=== PATIENT | female | born 1965 | race Caucasian/White ===

== ENCOUNTER 2017-06-30 14:44 | Outpatient (CLI) | payer MEDICARE | END 2017-06-30 14:45 | disposition home or self-care (01) | LOC: BICRAD 14:44 | PROVIDERS: ATTEND Internal Medicine | DX: M54.5 Low back pain (principal); M25.551 Pain in right hip; M47.896 Other spondylosis, lumbar region | CPT/HCPCS: 72100; 72220 ==

== ENCOUNTER 2017-07-06 08:37 | Outpatient (CLI) | payer MEDICARE | END 2017-07-06 08:38 | disposition home or self-care (01) | LOC: BICMAMMO 08:37 | PROVIDERS: ATTEND Internal Medicine | DX: R92.8 Other abnormal and inconclusive findings on diagnostic imaging of breast (principal) | CPT/HCPCS: 76642; 77065; G0279 ==

== ENCOUNTER → 2017-07-13 | Day surgery (SDC) | payer MEDICARE | LOC: BICULT 13:07 | PROVIDERS: ATTEND Internal Medicine | PROC: 0HBU3ZX Excision of Left Breast, Percutaneous Approach, Diagnostic (ICD-10-PCS; principal; 2017-07-13) | DX: N60.12 Diffuse cystic mastopathy of left breast (principal); N60.42 Mammary duct ectasia of left breast; Z88.0 Allergy status to penicillin; Z88.1 Allergy status to other antibiotic agents | CPT/HCPCS: 19083; 19084; 88305 ==

== ENCOUNTER 2017-09-20 07:41 | Outpatient (CLI) | payer MEDICARE ==
[2017-09-20] MEDS ORDERED: Gadobenate Dimeglumine 529 MG/1 ML (20ML VIAL) ONE (13:11)
== END 2017-09-20 07:42 | disposition home or self-care (01) ==
LOC: BICMRI 07:41
PROVIDERS: ATTEND Psychiatry & Neurology Neurology
DX: G35 Multiple sclerosis (principal); M47.892 Other spondylosis, cervical region; I67.82 Cerebral ischemia
CPT/HCPCS: 70553; 72156; A9579

== ENCOUNTER 2017-12-28 09:21 | Outpatient (CLI) | payer MEDICARE | END 2017-12-28 09:22 | disposition home or self-care (01) | LOC: BICMAMMO 09:21 | PROVIDERS: ATTEND Internal Medicine | DX: Z12.31 Encounter for screening mammogram for malignant neoplasm of breast (principal); N63.20 Unspecified lump in the left breast, unspecified quadrant | CPT/HCPCS: 77063; 77067 ==

== ENCOUNTER 2018-08-02 13:40 | Outpatient (CLI) | payer MEDICARE ==
[~2018-08-02 13:40] MED LIST: Gadobenate Dimeglumine 529 MG/1 ML (20ML VIAL) ONE
--- NOTE | 2018-08-02 16:45 | MRI ---
MRI BRAIN WITH AND WITHOUT CONTRAST: DATE: 08/02/2018 HISTORY: 52-year-old female with multiple sclerosis. Follow-up. COMPARISON: 09/20/2017 TECHNIQUE: Multiplanar, multisequence MRI of the brain performed pre- and post-IV injection of gadolinium based contrast agent. FINDINGS: There are very extensive, severe, confluent T2-hyperintense signal abnormalities throughout the subco rtical, deep, and periventricular white matter of the supratentorial brain. The entire length of the corpus callosum is involved with the signal abnormality. There are several small focal such signa l abnormalities in the bilateral cerebellar hemispheres. There is questionable involvement of gisela and middle cerebellar peduncles. There is no abnormal enhancement, obstructive hydrocephalus, mass ef fect, midline shift, extra-axial fluid collection, restricted diffusion, or hemorrhage. There is diffuse, moderately advanced atrophy of the brain. Small focal signal abnormality of posterior limb o f right internal capsule is again noted. There has been no significant interval change. IMPRESSION: Late stage, severe multiple sclerosis, unchanged since last year.
--- NOTE | 2018-08-02 16:52 | MRI ---
MRI CERVICAL SPINE WITH AND WITHOUT CONTRAST: 08/02/18 Multiplanar and multisequential imaging of the cervical spine obtained. Postcontrast images obtained. INDICATIONS: MS evaluation. COMPARISON: Comparison made to prior MRI cervical spine 09/20/17. FINDINGS: The cervical vertebrae maintain normal height and alignment. Loss of disc space at C5-6 and C6-8 agai n noted. Posterior disc bulge and spondylosis at both of these levels again seen impinging and mildly indentin g the anterior cord. These changes are slightly more pronounced at C5-6. They appear stable in appear ance from the prior study. Only mild spondylosis at the other levels without significant change. The anterior subarachnoid space is preserved at the other levels. Incidentally noted is uncinate hypertrophy to the right at T2-T3 encroaching into the foramina at thi s level. This is not evaluated on axial images of the cervical spine exam. Evaluation of the cord again shows areas of abnormal T2 signal in the upper cervical cord. Area of in creased signal on the left at T2-T3 disc level is again seen but is slightly less pronounced than on the prior study. Another area of increased signal is seen in the posterior cord to the right at C4-5 level is similar appearance to the prior exam. Increased signal in the cord to the right at the C6-7 level is similar to the prior exam. No abnormal enhancement identified. IMPRESSION: Posterior disc bulge and spondylosis at C5-6 and C6-7 again noted. These changes do impinge on the co rd at C5-6 and are similar to the prior exam. There are abnormal signal changes in the cervical cord consistent with MS similar to the prior exam. An area in the upper cervical cord appears less prominent today. No evidence of enhancement or active demyelination. POS: OFF
--- NOTE | 2018-08-02 16:56 | MRI ---
MRI thoracic spine with and without contrast: DATE: 08/02/2018 HISTORY: 52-year-old female with multiple sclerosis COMPARISON: 10/14/2016. FINDINGS: At T2-3, there is high-grade right neural foraminal stenosis (as demonstrated on sagittal T2-weighted image 6 of 20, series 7) by what is probably right lateral disc-osteophyte complex. There is also significant left neural foraminal stenosis at this level to a slightly lesser degree. There is no hig h-grade central spinal canal stenosis at any level. No extrinsic cord impingement at any level. Again noted is the large number of discrete small and tiny T2 hyperintense intramedullary lesions thr oughout the entire length of the spinal cord, without abnormal enhancement. No syrinx. There is probably no significant interval change overall. IMPRESSION: Evidence for numerous small and tiny multiple sclerosis demyelinating plaques throughout the length o f the thoracic spinal cord. No significant change since 10/14/2016.
== END 2018-08-02 13:41 | disposition home or self-care (01) ==
LOC: BICMRI 13:40
PROVIDERS: ATTEND Nurse Practitioner Acute Care
DX: G35 Multiple sclerosis (principal); G37.9 Demyelinating disease of central nervous system, unspecified; M47.812 Spondylosis without myelopathy or radiculopathy, cervical region; M50.91 Cervical disc disorder, unspecified, high cervical region
CPT/HCPCS: 70553; 72156; 72157; A9577

== ENCOUNTER 2019-02-20 08:01 | Outpatient (CLI) | payer MEDICARE ==
--- NOTE | 2019-02-20 11:11 | MRI ---
BRAIN MRI WITH AND WITHOUT CONTRAST: HISTORY: Possible sclerosis. COMPARISON: 08/02/2018. FINDINGS: Gradient echo sequence: No hemorrhage. Calvarium: Appropriate T1 marrow signal intensity. Midline brain parenchyma: Unremarkable. Cerebrum:Diffuse cerebral atrophy, greater than expected for patient's age. There are confluent T2 an d FLAIR white matter hyperintensities, along with abnormal T2 and FLAIR hyperintensity involving the corpus callosum in its entirety. No restricted diffusion. No enhancement to suggest any active de myelinating plaques. Ventricles: No evidence of hydrocephalus. Sinuses and mastoid air cells: Adequate aeration. Diffusion: Central arterial flow is maintained. Absent restricted diffusion. Postcontrast images: No pathologic enhancement of the brain parenchyma. IMPRESSION: Stable T2 and FLAIR white matter hyperintensities which may be on the basis of a late stage, severe m ultiple sclerosis. Absent restricted diffusion and enhancement to suggest active demyelination. Transcribed Date/Time: 02/20/2019 11:20 AM
[2019-02-20] MEDS ORDERED: Magnevist 469MG/ML 20 ML VIAL ONE (11:21)
--- NOTE | 2019-02-20 11:44 | MRI ---
MRI THORACIC SPINE WITH AND WITHOUT CONTRAST: DATE: 02/20/2019. HISTORY: A 53-year-old female with multiple sclerosis. Followup. COMPARISON: 08/02/2018. FINDINGS: Vertebral body heights are maintained. No abnormal intramedullary enhancement. No significant centr al spinal canal stenosis at any level. At T2-3, there is high-grade right neural foraminal stenosis (best demonstrated on sagittal T2 weight ed sequence) by what is probably right lateral disk-osteophyte complex. Significant left neural fora ruth stenosis at this level to a lesser degree. No high-grade central spinal canal stenosis at any level. No extrinsic cord impingement at any level. Numerous small and tiny T2-hyperintense intramed ullary signal abnormalities throughout the thoracic spinal cord are again demonstrated on the sagitta l sequences, but this time, the axial images are significantly degraded by artifact, making the evalu ation limited. There is no obvious major interval change on the sagittal sequences. IMPRESSION: 1. Multiple sclerosis demyelinating plaques involving thoracic spinal cord at multiple levels. 2. No significant interval change detected since 08/02/2018. POS: [facility]
--- NOTE | 2019-02-20 11:46 | MRI ---
MRI CERVICAL SPINE NONCONTRAST: Date: 02/20/19 HISTORY: 53-year-old female with G35 multiple sclerosis diagnosed in 1989. Follow-up. TECHNIQUE: Multisequence MRI of cervical spine obtained in sagittal and axial planes, pre and post IV injection of 20 mL MultiHance Gadolinium based contrast agent. FINDINGS: There is no syringohydromyelia. There is no abnormal intramedullary enhancement. Loss of lordosis. Ve rtebral body heights are maintained. The previously mentioned foci of intramedullary signal abnormality, including left C2-3, and lesions scattered diffusely bilaterally and centrally at C4 through C5-6 (including the right posterior lesio n at C4-5 mentioned on previous report), have not significantly changed. Regarding spinal canal and neural foramina: C1-2: No central stenosis. C2-3: No central or right neural foraminal stenosis. Mild to moderate left neural foraminal stenosis . Disc space maintained. Moderate left facet DJD. Very mild right facet DJD. C3-4: No high grade central stenosis. Mild right neural foraminal stenosis. Very mild left neural fo raminal stenosis. Disc space maintained. Mild bilateral facet DJD. C4-5: No high grade central stenosis. Disc space maintained. Mild bilateral neural foraminal stenosi s. C5-6: Mild to moderate disc space narrowing. Prominent broad based central and bilateral paracentral disc herniation or disc-osteophyte complex, with superior migration to the pedicle level of C5 and s light inferior migration. Bilateral uncinate process osteophytes cause severe bilateral neural forami nal stenosis. Moderate central spinal canal stenosis. C6-7: Broad based disc herniation or disc-osteophytic bar complex with superior and inferior migrati on, similar to C5-6 level. Moderate disc space narrowing. In addition to the broad based component, t here is a more focal right paracentral disc herniation or disc-osteophyte complex component. Spinal c ord is slightly posteriorly displaced. Bilateral uncinate process osteophytes. Severe right neural fo raminal stenosis. Moderate left neural foraminal stenosis. C7-T1: No high grade central stenosis. Mild to moderate bilateral neural foraminal stenosis. There has been no significant interval change overall. IMPRESSION: 1. Multiple intramedullary signal abnormalities: evidence for multiple sclerosis demyelinating plaqu es in the cervical spine. 2. Cervical spondylosis with moderate degenerative disc disease at C5-6 and C6-7 with moderate centr al spinal canal stenosis and severe bilateral neural foraminal stenosis. 3. No significant interval change since 08/02/18. POS: C
== END 2019-02-20 08:02 | disposition home or self-care (01) ==
LOC: BICMRI 08:01
PROVIDERS: ATTEND Nurse Practitioner Acute Care
DX: G35 Multiple sclerosis (principal); M47.812 Spondylosis without myelopathy or radiculopathy, cervical region; M50.30 Other cervical disc degeneration, unspecified cervical region; M48.02 Spinal stenosis, cervical region
CPT/HCPCS: 70553; 72156; 72157; A9579

== ENCOUNTER 2020-05-20 08:03 | Outpatient (CLI) | payer MEDICARE ==
[2020-05-20] MEDS ORDERED: Magnevist 469MG/ML 20 ML VIAL ONE ×3 (11:20)
== END 2020-05-20 08:04 | disposition home or self-care (01) ==
LOC: BICMRI 08:03
PROVIDERS: ATTEND Nurse Practitioner Acute Care
DX: G35 Multiple sclerosis (principal); M50.222 Other cervical disc displacement at C5-C6 level; M48.02 Spinal stenosis, cervical region; M47.812 Spondylosis without myelopathy or radiculopathy, cervical region; M51.36 Other intervertebral disc degeneration, lumbar region; R90.82 White matter disease, unspecified; R90.89 Other abnormal findings on diagnostic imaging of central nervous system
CPT/HCPCS: 70553; 72156; 72158; A9579

== ENCOUNTER 2022-10-15 12:43 | Outpatient (CLI) | payer MEDICARE ==
[2022-10-15] MEDS ORDERED: Iopamidol 370 76% 100 ML VIAL ONE (13:57)
== END 2022-10-15 12:44 | disposition home or self-care (01) ==
LOC: BICCT 12:43
PROVIDERS: ATTEND Physician Assistant Medical
DX: R10.32 Left lower quadrant pain (principal); K59.00 Constipation, unspecified
CPT/HCPCS: 74177; Q9967

== ENCOUNTER 2023-01-06 08:30 | Outpatient (CLI) | payer MEDICARE ==
[2023-01-06] MEDS ORDERED: Magnevist 469MG/ML 20 ML VIAL ONE ×3 (09:43)
== END 2023-01-06 08:31 | disposition home or self-care (01) ==
LOC: MRI 08:30
PROVIDERS: ATTEND Family Medicine
DX: G35 Multiple sclerosis (principal); G95.9 Disease of spinal cord, unspecified; M47.814 Spondylosis without myelopathy or radiculopathy, thoracic region; M48.04 Spinal stenosis, thoracic region; R90.82 White matter disease, unspecified; M47.812 Spondylosis without myelopathy or radiculopathy, cervical region; M89.38 Hypertrophy of bone, other site; G93.89 Other specified disorders of brain; R93.7 Abnormal findings on diagnostic imaging of other parts of musculoskeletal system
CPT/HCPCS: 70553; 72156; 72157